=== PATIENT | female | born 1990 | race Caucasian/White ===

== ENCOUNTER 2017-07-31 06:20 | Day surgery (SDC) | payer OTHER, SELFPAY ==
[2017-07-28 15:19] VITALS: BMI 34.4
[2017-07-31 07:04] VITALS: BP 122/77; PULSE 85; RESP 16; TEMP 36.7; O2SAT 98; BMI 34.4
--- NOTE | 2017-07-31 07:20 | PM.PREOP ---
Pre-operative Note Interval Note Pre-op Check: History & Physical Reviewed by Physician
[2017-07-31] MEDS: CLINDAMYCIN 900 MG/50 ML PIGGYBACK IV (07:59)
[2017-07-31] MEDS: LACTATED RINGERS 1,000 ML 42 ML IV (08:00)
--- NOTE | 2017-07-31 08:08 | SUR.OPER ---
Supine on padded OR bed, head on pillow, arms secured on padded arm boards at <90 degrees abduction, legs uncrossed, safety belt at thigh, tape over blanket over lower legs.
[2017-07-31] MEDS: BUPIVACAINE 0.25% (PF) 30 ML VIAL INJ (08:25)
[2017-07-31 08:49] VITALS: BP 110/68; PULSE 89; RESP 10; TEMP 36.3; O2SAT 98
[2017-07-31 08:50] VITALS: BP 110/67; PULSE 82; RESP 13; O2SAT 98
[2017-07-31 08:56] VITALS: BP 116/70; PULSE 81; TEMP 36.3; O2SAT 100
--- NOTE | 2017-07-31 08:59 | P.OP_ITS ---
Operative Date/Time/Diagnoses - Date of procedure: 07/31/17 Time of procedure: 07:52 Pre-op diagnosis: Left dorsal wrist ganglion Post-op diagnosis: same Procedure & Clinicians Procedure: Left wrist mass excision CPT 63206 Same procedure as scheduled: Yes Indications: 26-year-old female with insidious onset left dorsal wrist mass. I aspirated in clinic resulting in complete resolution but recurred about 2 weeks later. It is painful wrist extension and with activities. The risks, benefits , alternatives of the procedure were discussed with the patient. Risks included pain, bleeding, infection, damage to nearby structures, numbness, stiffness, instability, and anesthesia complications. She signed a written consent form. Surgeon: Sudhir Tiwari Click Yes if Unassisted: Yes Anesthesia Type: General and Local Operative Notes Findings: 1 cm x 1 cm x 1 cm fluid filled mass with blood tinged gelatinous fluid. It was excised in a 5 mm x 5 mm window was made in the dorsal wrist capsule Closure Type: primary Specimen(s): other (Left wrist mass) Estimated Blood Loss (mL): 1 Blood products transfused: none Tourniquet time (min): 22 Procedure in detail: The patient was met in the preoperative hold area on the day of the procedure in the operative extremity was signed. Consent was verified. She desired to proceed. She is brought to the operating room and surrendered anesthesia. Once general anesthesia been obtained she was placed in a supine position all bony prominences were well padded. She was then prepped and draped in the standard sterile fashion and a surgical time-out was held to confirm the patient procedure, identity, allergies, imaging, laterality. All were in agreement we proceeded. The mass was easily visible through the skin. An Esmarch was used to exsanguinate the limb and the tourniquet was elevated to 250 mm of mercury. A 2 cm incision was made transversely in line with the skin creases. Blunt dissection was performed with tenotomy scissors until the mass was from all surrounding tissues. The pedunculated extension to the capsule was identified and the base of the mass was excised with a 5 mm x 5 mm window of capsule. During excision of the mass it was popped and red tinged gelatinous was removed. The specimen was passed off the field. The wound was then irrigated copiously and closed with 2 O Vicryl in the dermis and running Monocryl in the skin. Steri-Strips were placed. 10 cc of 0.25% Marcaine plain placed about the surgical site. A sterile dressing was applied. A volar resting splint was applied. She was awakened and transferred to the recovery room. Complications: none Condition: stable Disposition: same day surgery Plan for aftercare: Splint on until follow-up. Will use wrist brace from 2-6 weeks with range of motion activities. Advance to full activity after 6 weeks.
[2017-07-31 09:13] VITALS: BP 118/63; PULSE 80; RESP 14; TEMP 36.2; O2SAT 100
== END 2017-07-31 09:14 | disposition home or self-care (01) ==
PROVIDERS: PCP Radiology Diagnostic Radiology; Visit Provider Orthopaedic Surgery
PROC: (CPT 27345; principal; 2017-07-31 07:45)
DX: M67.432 Ganglion, left wrist (principal); G47.33 Obstructive sleep apnea (adult) (pediatric)
CPT/HCPCS: 25111; J1885; J2250; J2405; J2704; J3010

== ENCOUNTER → 2018-10-05 07:54 | Outpatient (CLI) | payer OTHER, SELFPAY ==
--- NOTE | 2018-10-05 | DI.MRI.S_ITS ---
PROCEDURE: MR LUMBAR SPINE WO/W CON INDICATIONS: 28 year-old obese female with Lumbar radiculopathy. Thoracic aortic ectasia TECHNIQUE: Noncontrast sagittal T1 spin echo and T2 fast spin echo, sagittal STIR, axial T1 and T2 fast spin echo through the lumbar spine. In cases with scoliosis, additional coronal T2 fast spin echo may be performed. After the administration of contrast, sagittal and axial T1 spin echo with fat saturation through the lumbar spine. COMPARISON: [facility], , L-SPINE WITHOUT CONTRAST, 05/27/2017, 16:44. FINDINGS: Image quality: Excellent. Alignment and curvature: There is normal bony alignment. Marrow: Marrow is of normal overall signal. No acute vertebral body compression fractures. No suspicious marrow enhancement. Spinal cord: Conus medullaris terminates at the L1 level. Visualized spinal cord demonstrates normal signal, without suspicious enhancement. Paraspinous soft tissues: No paravertebral masses or abnormal enhancement. T12-L1: Normal appearance. L1-L2: Normal appearance. L2-L3: Normal appearance. L3-L4: Normal appearance. L4-L5: The disc height and disk signal are well-preserved. Mild generalized disc bulge is seen. Mild facet joint hypertrophy is seen. There is mild left-sided and no significant right-sided neural foraminal narrowing seen at this level. No significant canal narrowing is seen. Stable from the prior study. L5-S1: The disc height and disc signal are relatively well-preserved. Mild to moderate disc bulge is seen. Mild facet joint hypertrophy is seen. There is mild to moderate right-sided and mild left-sided neural foraminal narrowing seen. No central canal narrowing is seen. There is no significant progression compared to the prior. IMPRESSION: Stable lower lumbar spine degenerative change. Dictated by: Misha Saab M.D. on 10/05/2018 at 9:35 Approved by: Misha Saab M.D. on 10/05/2018 at 9:40
== END ==
PROVIDERS: Visit Provider Student in an Organized Health Care Education/Training Program
DX: M54.16 Radiculopathy, lumbar region (principal); I77.810 Thoracic aortic ectasia
CPT/HCPCS: 72158; A9579